=== PATIENT | female | born 1995 | race African-American/Black ===

== ENCOUNTER 2017-04-18 13:07 | Emergency (ER) | payer OTHER ==
[~2017-04-18] VITALS: Ht 162.6 cm; Wt 64.7 kg
[~2017-04-18 13:07] MED LIST: PROAIR RESPICL90 MCG IH; ROBITUSSIN AC,T10 ML PO; ZITHROMAX Z-PA250 MG PO
[2017-04-18] MEDS ORDERED: APPLE CIDER VI1 EAC1 PO (14:31)
[2017-04-18] MEDS ORDERED: PROAIR HFA8.5 GM IH (14:45)
[2017-04-18 15:01] VITALS: BP 124/81
== END 2017-04-18 15:02 | disposition home or self-care (01) ==
LOC: EME 13:07
DX: S00.83XA Contusion of other part of head, initial encounter (principal); J45.909 Unspecified asthma, uncomplicated; W22.09XA Striking against other stationary object, initial encounter; Z76.0 Encounter for issue of repeat prescription
CPT/HCPCS: 99281; 99283